=== PATIENT | male | born 1975 | race Caucasian/White ===

== ENCOUNTER 2016-06-17 02:12 | Emergency (ER) | payer BC ==
--- NOTE | 2016-06-17 04:03 | ERNOTE ---
Integumentary HPI - Narrative Date of Service: 06/17/16 - General Time Seen by Provider: 06/17/16 04:02 Source: patient - Immun/Allergies/Home Medications Immunizations: IMMUNIZATION HX Immunizations Up to Date No History of Influenza Vaccine No Hx Pneumococcal Vaccination No Allergies/Adverse Reactions: Allergies Allergy/AdvReac Type Severity Reaction Status Date / Time No Known Allergies Allergy Unverified 02/04/13 22:06 Home Medications: HOME MEDICATIONS HYDROcodone/ACETAMINOPHEN [Lortab 7.5-325 mg Tablet] 1 each PO Q6H PRN #15 tablet 06/17/16 [Last Taken Unknown] Sulfamethoxazole/Trimethoprim [Bactrim Ds] 1 tab PO BID #20 tab 06/17/16 [Last Taken Unknown] - History of Present Illness Narrative: PT C/O CELLULITIS TO RIGHT ELBOW. SAYS HE HAS HAD INCREASED REDNESS AND SWELLING AND TENDERNESS TO THE BACK O F HIS RIGHT ELBOW. 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 HE SAYS IT IS GETTING WORSE. NO HX OF FEVER OR CHILLS. SAYS HE HAD A CELLULITIS TO RIGHT HAND A FEW YEARS AGO THAT STARTED FROM SMALL SCRAPE AND HE WAS TREATED WITH BACTRIM THEN. HE IS RIGHT HANDED. NO OTHER COMPLAINTS . IS HEALTHY . DOES NOT HAVE A DOCTOR. - Patient's Past Medical History Patient History - Medical: Alcohol Abuse Patient History - Cardiac/Respiratory: No pertinent hx Patient History - Cancer: No Hx of Cancer Patient History - Surgical Procedures: No surgical history Patient History - Other: None - Social History Living Situations: alone Abuse History: Hx of Substance Use Psych History: No pertinent hx Smoking Status: Current every day smoker Patient requests Smoking Cessation Consult: No Initiate information on Smoking Cessation: No Alcohol Use: none Drug Use: none - Immunizations Immunizations Up to Date: No Hx Pneumococcal Vaccination: No History of Influenza Vaccine: No Physical Exam - Physical Exam General Appearance: Present: wd/wn, alert, mild distress Extremity Exam: Present: other - RIGHT ELBOW WITH ERYTHEMA , MOSTLY POSTERIORLY , AND INCREASED WARMTH AND TENDERNESS AND FLUCTUANCE , NOT LOCALAIZED TO THE BURSA, WITH ERYTHEMA ASCENDING UP THE LOWER THIRD OF THE TRICEPS. NO AXILLARY TENDERNESS OR SWELLING. NL DISTAL PULSES AND SENSATION. THERE IS AN OLDER LOOKING SUPERFICIAL HEALING SCRATCH TO THE SAME GENERAL AREA BUT HE RECALLS NO INJURY. THERE IS NO POINTING OR DRAINAGE FROM THE ELBOW. ED Progress - Results and Orders Patient's Lab Results:: I have reviewed the patient's lab results. Results and Orders: LABS NL EXCEPT CRP = 10.4 AND GLUC = 128. WBC ONLY 7.7K - Vital Signs Vital Signs: Vital Signs 06/17/16 03:00 Temperature 36.6 C Pulse Rate 102 H Respiratory 16 Rate Blood Pressure 147/99 O2 Sat by Pulse 99 Oximetry - X-Ray X-Ray #1 X-Ray: elbow - RIGHT ELBOW WITH MILD SOFT TISSUE SWELLING AND DIAGONAL LINEAR CLACIFIC DENSITY TO PROXIMAL RADIUS. - Progress/Reassessment Chief Complaint: Cellulitis Procedures Right Elbow Anesthesia: Lidocaine w/ Epi, Local I & D Prep: betadine prep Blade Size: JOINT ASPIRATED WITH 16 GAUGE NEEDLE AND PRODUCTIVE OF 5-6 CC OF YELLOWISH SL. CLOUDY FLUID Findings and Actions: cultures obtained, gram stain, other - WBC. Complications: Pt tone procedure well Plan - Plan Plan: I FORGOT TO ASK ABOUT TETANUSS BEFORE HE WAS DISCHARGED AND DID NOT NOTICE HE REPORTED NO DT. I WILL TRY TO GET HIM CALLED BACK SO HE CAN BE UPDATED WITH T- DAP. IF NOT HE SHOULD GET IT WHEN HE F/U WITH [facility]THO. Departure Clinical Impression: Cellulitis of right elbow - Departure Disposition: Home Follow Up Needed Condition: Fair Instructions: Cellulitis, Adult, [id number] Additional Instructions: NO RIGHT ARM WORKING UNTIL INFECTION IS HEALED. ELEVATE ABOVE HEART MUCH POSSIBLE AND APPLY HEAT FOR 30 MIN EVERY 4 HOURS. CALL THE ORTHOPEDIC DEPARTMENT EARLY SATURDAY MORNING AND GET APPOINTMENT FOR RECHECK. LET THEM KNOW I TALKED WITH THERE MANAGER EXPORT DOCTOR THIS MORNING. RETURN TO THE ER SOONER IF WORSE ( FEVER, INCREASED SWELLING , INCREASED ERYTHEMA UP YOUR ARM IN TO THE AXILLA. ) USE THE MEDS DIRECTED. MELVIN WRAP FOR COMPRESSION. Referrals: Toni Iverson, PAC [[facility]] - Prescriptions: HYDROcodone/ACETAMINOPHEN [Lortab 7.5-325 mg Tablet] 1 each PO Q6H PRN #15 tablet PRN Reason: Pain Sulfamethoxazole/Trimethoprim [Bactrim Ds] 1 tab PO BID #20 tab
[2016-06-17 04:19] VITALS: BP 126/77
[2016-06-17 04:23] LABS: Hematocrit 40.3 % (42.0-52.0); Hemoglobin 13.7 gm/dL (13.5-18.0); Mean Corpuscular Hemoglobin 31.3 pg (27-31); Mean Platelet Volume 9.4 fl (6.0-9.5); Neutrophil # 4.7 K/mm3 (1.3-6.0); Neutrophil % 61.1 % (42-75.0); Platelet Count 234 K/mm3 (150-450); Red Blood Count 4.38 M/mm3 (4.7-6.0); Red Cell Distribution Width 12.3 % (11.5-14.0); White Blood Count 7.7 K/mm3 (4.0-10.5)
[2016-06-17 04:31] LABS: Anion Gap 14.6 mmol/L (6.8-13.8); BUN/Creatinine Ratio 8.7 (9.0-21.6); CRP 10.3 mg/dL (0.0-0.9); Calcium * 8.7 mg/dL (7.9-10.9); Carbon Dioxide 25.2 mmol/L (24-32.6); Estimated Creat Clear 180.3; Potassium 3.8 mmol/L (3.4-4.6)
--- OUTSIDE RECORDS SUMMARY | 2016-06-17 04:47 | XMS REPORT | Continuity of Care Document ---
:1975 Author Organization [employer] [place] [address] Care Team Providers Name Role Phone Unavailable Primary Care Provider Unavailable Source Comments This disclosure is being made pursuant to the [employer] program and maynot contain all information available regarding this patient.[employer] Active Allergies and Adverse Reactions Not on File Current Medications Be aware that medications may not be up to date as of this document. Alwaysverify current medications with the patient. Not on file Active Problems Not on file Social History Tobacco Use Types Packs/Day Years Used Date Never Assessed Plan of Care Health Maintenance Due Date Last Done Comments Retired-Pertussis Vaccine Adult 1993 Retired-Tetanus Vaccine Adult 1993 Retired-INFLUENZA VACCINE 10/19/2014 Results from Last 3 Months Not on file
[2016-06-17] MEDS ORDERED: LIDOCAINE HCL/EPINEPHRINE 30 ML VIAL IJ ONE (05:00)
[2016-06-17] MEDS ORDERED: SULFAMETHOXAZOLE/TRIMETHOPRIM 1 TAB TABLET ONE (06:03)
[2016-06-17] MEDS ORDERED: SULFAMETHOXAZOLE/TRIMETHOPRIM 1 TAB TABLET PO ONE (06:04)
[2016-06-17 06:41] LABS: Body Fluid Appearance SLIGHTLY CLOUDY (CLEAR); Body Fluid Color YELLOW (COLORLESS)
[2016-06-17 07:00] LABS: Body Fluid WBC 550 /uL (0-1000)
== END 2016-06-17 06:05 | disposition home or self-care (01) ==
LOC: ER 02:12
PROC: 0X9B3ZX Drainage of Right Elbow Region, Percutaneous Approach, Diagnostic (ICD-10-PCS; principal; 2016-06-17)
DX: L03.113 Cellulitis of right upper limb (principal); Z72.0 Tobacco use